=== PATIENT | male | born 1980 | race Hispanic/Latino ===

== ENCOUNTER 2018-05-14 06:48 | Emergency (ER) | payer SELFPAY ==
[2018-05-14] MEDS ORDERED: NA CHLORIDE 0.9% 1,000 ML ONE (07:24)
[2018-05-14 07:30] LABS: Protime INR 0.95
[2018-05-14 07:35] LABS: ALT/SGPT 63 U/L (12-78); AST/SGOT 22 U/L (15-37); Albumin 3.4 g/dL (3.4-5.0); Alkaline Phosphatase 77 U/L (45-117); BUN Blood Urea Nitrogen 13 mg/dL (7-18); Bicarbonate 35 mmol/L (21-32); Bilirubin Direct 0.1 mg/dL (0-0.2); Bilirubin Total 0.5 mg/dL (0.2-1.0); Glucose Level 72 mg/dL (74-106); Magnesium 2.3 mg/dL (1.8-2.4); NT PRO-BNP 7 pg/mL (<125); Potassium 3.4 mmol/L (3.5-5.1); Protein, Total 7.9 g/dL (6.4-8.2); Sodium Level 140 mmol/L (136-145); Troponin (Emerg Dept Use Only) < 0.02 ng/mL (0.0-0.045)
--- NOTE | 2018-05-14 08:07 | RAD REPORT ---
EXAM DESCRIPTION: CT - Head Brain Wo Cont - 05/14/2018 7:16 am CLINICAL HISTORY: MENTAL STATUS CHANGE Drowsiness, headache COMPARISON: No comparisons TECHNIQUE: All CT scans are performed using dose optimization technique as appropriate and may inclu de automated exposure control or mA/KV adjustment according to patient size. FINDINGS: No intracranial hemorrhage, hydrocephalus or extra-axial fluid collection.No areas of brai n edema or evidence of midline shift. The paranasal sinuses and mastoids are clear. The calvarium is intact. IMPRESSION: No acute intracranial abnormality.
--- NOTE | 2018-05-14 08:56 | RAD REPORT ---
EXAM DESCRIPTION: RAD - Chest Single View - 05/14/2018 7:16 am CLINICAL HISTORY: CHEST PAIN Chest pain. COMPARISON: No comparisons FINDINGS: Portable technique limits examination quality. The lungs are grossly clear. The heart is normal in size. No displaced fractures. IMPRESSION: No acute intrathoracic process suspected.
[2018-05-14 10:41] LABS: Barbiturates NEGATIVE (NEGATIVE); Benzodiazepines NEGATIVE (NEGATIVE); Cocaine NEGATIVE (NEGATIVE); METHAMPHETAM POSITIVE (NEGATIVE); Methadone NEGATIVE (NEGATIVE); Opiates POSITIVE (NEGATIVE); Phencyclidine NEGATIVE (NEGATIVE); THC Cannibis NEGATIVE (NEGATIVE)
[2018-05-14 11:20] LABS: Urine Blood TRACE (NEG); Urine Glucose NEGATIVE (NEG); Urine Protein NEGATIVE (NEG); Urine Specific Gravity 1.025 (1.005-1.030)
--- NOTE | 2018-05-14 11:44 | ER ---
Nurse's Notes [facility] Name: Sami Novak Age: 37 yrs Sex: Male : 1980 Arrival Date: 05/14/2018 Time: 06:50 Bed 6 Private MD: Diagnosis: Chest pain, unspecified;Altered mental status, unspecified;Drug use Presentation: 05/14 06:58 Presenting complaint: Patient states: PER SPOUSE: TEMPORARY MEMORY LOSS WHILE DRIVING, bp NOW ANXIOUS AND SHAKY. Transition of care: patient was not received from another setting of care. 06:58 Method Of Arrival: Wheelchair bp 07:00 Onset of symptoms is unknown. Risk Assessment: Do you want to hurt yourself or someone bp else? Patient reports no desire to harm self or others. Initial Sepsis Screen: Does the patient meet any 2 criteria? RR > 20 per min. No. Patient's initial sepsis screen is negative. Does the patient have a suspected source of infection? No. Patient's initial sepsis screen is negative. Care prior to arrival: None. 07:00 Acuity: DARIUS 2 bp Triage Assessment: 07:01 General: Appears distressed, uncomfortable, Behavior is cooperative, appropriate for bp age, agitated. Pain: Denies pain. Neuro: Level of Consciousness is awake, alert, obeys commands, Oriented to person, place, time, situation, Appropriate for age Speech is normal, STUTTERING. Historical: - Allergies: 07:01 No Known Allergies; bp - Home Meds: 07:01 None [Active]; bp - PMHx: 07:01 None; bp - Immunization history:: Adult Immunizations up to date. - Social history:: Smoking status: Patient uses tobacco products. - Ebola Screening: : Patient negative for fever greater than or equal to 101.5 degrees Fahrenheit, and additional compatible Ebola Virus Disease symptoms Patient denies exposure to infectious person Patient denies travel to an Ebola-affected area in the 21 days before illness onset No symptoms or risks identified at this time. Screenin:04 Abuse screen: Denies threats or abuse. Denies injuries from another. Nutritional bp screening: No deficits noted. Tuberculosis screening: No symptoms or risk factors identified. Fall Risk None identified. Assessment: 07:05 General: Appears distressed, comfortable, slender, unkempt, Behavior is cooperative, bp appropriate for age, agitated. Pain: Complains of pain in chest. Neuro: Level of Consciousness is awake, alert, obeys commands, Oriented to person, place, time, situation, Appropriate for age Speech is normal, Facial symmetry appears normal. Cardiovascular: Rhythm is sinus rhythm. Respiratory: Airway is patent Respiratory effort is even, unlabored, Respiratory pattern is regular, symmetrical. GI: No signs and/or symptoms were reported involving the gastrointestinal system. : No signs and/or symptoms were reported regarding the genitourinary system. EENT: No deficits noted. Derm: No deficits noted. Musculoskeletal: Circulation, motion, and sensation intact. Range of motion: intact in all extremities. 07:20 Reassessment: PT RETURNED FROM CT. bp 08:30 Reassessment: PT SLEEPING, VS STABLE ON MONITOR, UOP AND RESULTS PENDING. bp 10:26 Reassessment: ALL CURRENT ORDERS COMPLETED, FULL RESULTS PENDING. PT SLEEPING, VS bp STABLE. 11:46 Reassessment: Patient appears in no apparent distress at this time. Patient and/or sg family updated on plan of care and expected duration. Pain level reassessed. Patient is alert, oriented x 3, equal unlabored respirations, skin warm/dry/pink. awaiting Kaila CARLSON to update pt on results prior to DC to home Patient states feeling better. Vital Signs: 07:01 BP 115 / 82; Pulse 73; Resp 11; Temp 99; Pulse Ox 99% ; Weight 74.84 kg; Height 6 ft. 1 bp in. (185.42 cm); 07:50 BP 133 / 86; Pulse 79; Resp 12; Pulse Ox 97% ; sv 08:30 BP 126 / 82; Pulse 82; Resp 12; Pulse Ox 98% ; bp 10:30 BP 127 / 76; Pulse 67; Resp 13; Pulse Ox 98% ; bp 12:00 BP 121 / 84; Pulse 64; Resp 13; Pulse Ox 99% on R/A; sg 07:01 Body Mass Index 21.77 (74.84 kg, 185.42 cm) bp NIH Stroke Scale Scores: 08:24 NIHSS Score: 0 [facility] ED Course: 06:50 Patient arrived in ED. es 06:57 Camilla Dhaliwal FNP-C is [facility]. snw 06:57 Zack David MD is Attending Physician. snw 06:57 Lencho Lam, RN is Primary Nurse. bp 07:00 Triage completed. bp 07:01 Arm band placed on. bp 07:04 Patient has correct armband on for positive identification. Placed in gown. Bed in low bp position. Call light in reach. Side rails up X2. Adult w/ patient. 07:04 Inserted saline lock: 18 gauge in left antecubital area, using aseptic technique. bp 07:15 X-ray completed. Portable x-ray completed in exam room. Patient tolerated procedure jb2 well. 07:17 CT completed. Patient tolerated procedure well. Patient moved to CT via wheelchair. vr Patient moved back from CT. 07:17 XRAY Chest (1 view) In Process Unspecified. EDMS 07:17 CT Head Brain wo Cont In Process Unspecified. EDMS 07:24 CT completed. vm2 09:57 Urine collected: clean catch specimen, clear, maria a colored. jb1 10:25 EKG done, by emissions repair technician. reviewed by Camilla LUCAS. sm3 11:24 Primary Nurse role handed off by Lencho Lam, RN sg 11:24 Tomy Hinton, RN is Primary Nurse. sg Administered Medications: 07:15 Drug: NS 0.9% 1000 ml Route: IV; Rate: 125 ml/hr; Site: right antecubital; bp Point of Care Testing: Blood Glucose: 06:59 Blood Glucose: 75 mg/dL; bp Ranges: Outcome: 11:44 Discharge ordered by . snw 12:09 Patient left the ED. NIH Stroke Scale - NIH Stroke Score Date: 05/14/2018 Time: 08:24 Total Score = 0 1a. Level of Consciousness (LOC) - 0(Alert) 1b. Level of Consciousness (LOC) (Year \T\ Age) - 0(Both) 1c. LOC Commands (Open \T\ Closes Eyes/Radial Drill Operator For Plastic) - 0(Both) 2. Best Gaze (Lateral Gaze Paresis) - 0(Normal) 3. Visual Field Loss - 0(No visual loss) 4. Facial Palsy - 0(Normal) 5a. Left Arm: Motor (10-second hold) - 0(No drift) 5b. Right Arm: Motor (10-second hold) - 0(No drift) 6a. Left Leg: Motor (5-second hold - always test supine) - 0(No drift) 6b. Right Leg: Motor (5-second hold - always test supine) - 0(No drift) 7. Limb Ataxia (finger/nose \T\ heel/[place] - test with eyes open) - 0(Absent) 8. Sensory Loss (pinprick arms/legs/face) - 0(Normal) 9. Best Language: Aphasia (description/naming/reading) - 0(No aphasia) 10. Dysarthria (speech clarity - read or repeat words) - 0(Normal) 11. Extinction and Inattention (visual/tactile/auditory/spatial/personal) - 0(No abnormality) Initials: snw Signatures: Dispatcher [employer] Isaak Cantu1 Loren Mcgregor RN Tomy Griffin RN RN sg Camilla Dhaliwal, RECEIVING LEAD-C RECEIVING LEAD-Csnw Shira Perera Jesse jb2 Davis, Victoria vr McGuire, Victoria vm2 Lencho aLm, RN Ermelinda Young 3
--- NOTE | 2018-05-14 11:45 | EDPHYS ---
Physician Documentation [facility] Name: Sami Novak Age: 37 yrs Sex: Male : 1980 Arrival Date: 05/14/2018 Time: 06:50 Bed 6 Private MD: ED Physician Zack David HPI: 05/14 08:26 This 37 yrs old Male presents to ER via Wheelchair with complaints of Slurred snw Speech, Memory Loss, PROBLEM WALKING. 08:26 The patient presents to the emergency department with weakness of the a speech or snw higher order brain function problem, difficult walking, the patient is off balance. Onset: The symptoms/episode began/occurred last night. Context: occurred outdoors, occurred while the patient was driving. Associated signs and symptoms: Pertinent positives: altered mental status, chest pain. Severity of symptoms: At their worst the symptoms were moderate. Patient's baseline: Neuro: alert and fully oriented, Motor: no deficits, Ambulation: walks without assistance, Speech: slow, slurred. Current symptoms: anxiety. The patient has not experienced similar symptoms in the past. The patient has not recently seen a physician. Historical: - Allergies: 07:01 No Known Allergies; bp - Home Meds: 07:01 None [Active]; bp - PMHx: 07:01 None; bp - Immunization history:: Adult Immunizations up to date. - Social history:: Smoking status: Patient uses tobacco products. - Ebola Screening: : Patient negative for fever greater than or equal to 101.5 degrees Fahrenheit, and additional compatible Ebola Virus Disease symptoms Patient denies exposure to infectious person Patient denies travel to an Ebola-affected area in the 21 days before illness onset No symptoms or risks identified at this time. ROS: 08:26 Constitutional: Negative for fever, chills, and weight loss, Eyes: Negative for injury, snw pain, redness, and discharge, ENT: Negative for injury, pain, and discharge, Neck: Negative for injury, pain, and swelling, Respiratory: Negative for shortness of breath, cough, wheezing, and pleuritic chest pain, Abdomen/GI: Negative for abdominal pain, nausea, vomiting, diarrhea, and constipation, Back: Negative for injury and pain, : Negative for injury, bleeding, discharge, and swelling, MS/Extremity: Negative for injury and deformity, Skin: Negative for injury, rash, and discoloration. 08:26 Cardiovascular: Positive for chest pain. 08:26 Neuro: Positive for altered mental status, numbness, speech changes. Exam: 08:24 Head/Face: Normocephalic, atraumatic. snw 08:24 Neck: Trachea midline, no thyromegaly or masses palpated, and no cervical lymphadenopathy. Supple, full range of motion without nuchal rigidity, or vertebral point tenderness. No Meningismus. Chest/axilla: Normal chest wall appearance and motion. Nontender with no deformity. No lesions are appreciated. Cardiovascular: Regular rate and rhythm with a normal S1 and S2. No gallops, murmurs, or rubs. Normal PMI, no JVD. No pulse deficits. Respiratory: Lungs have equal breath sounds bilaterally, clear to auscultation and percussion. No rales, rhonchi or wheezes noted. No increased work of breathing, no retractions or nasal flaring. Abdomen/GI: Soft, non-tender, with normal bowel sounds. No distension or tympany. No guarding or rebound. No evidence of tenderness throughout. Back: No spinal tenderness. No costovertebral tenderness. Full range of motion. Skin: Warm, dry with normal turgor. Normal color with no rashes, no lesions, and no evidence of cellulitis. MS/ Extremity: Pulses equal, no cyanosis. Neurovascular intact. Full, normal range of motion. Neuro: Awake and alert, GCS 15, oriented to person, place, time, and situation. Cranial nerves II-XII grossly intact. Motor strength 5/5 in all extremities. Sensory grossly intact. Cerebellar exam normal. Normal gait. 08:24 Constitutional: The patient appears alert, awake, agitated, anxious, restless, unkempt. 08:24 Eyes: Pupils: no acute changes, Extraocular movements: no acute changes, Conjunctiva: injected, Corneas: are normal. 08:24 Psych: Behavior/mood is anxious, Affect is animated, Oriented to person, place, time. 08:28 ENT: TM's: are normal, Nose: is normal, Mouth: is normal, Dental exam: dental caries, snw that is moderate, that is severe, diffusely. Vital Signs: 07:01 BP 115 / 82; Pulse 73; Resp 11; Temp 99; Pulse Ox 99% ; Weight 74.84 kg; Height 6 ft. 1 bp in. (185.42 cm); 07:50 BP 133 / 86; Pulse 79; Resp 12; Pulse Ox 97% ; sv 08:30 BP 126 / 82; Pulse 82; Resp 12; Pulse Ox 98% ; bp 10:30 BP 127 / 76; Pulse 67; Resp 13; Pulse Ox 98% ; bp 12:00 BP 121 / 84; Pulse 64; Resp 13; Pulse Ox 99% on R/A; sg 07:01 Body Mass Index 21.77 (74.84 kg, 185.42 cm) bp NIH Stroke Scale Scores: 08:24 NIHSS Score: 0 snw MDM: 07:28 Patient medically screened. snw 11:45 Data reviewed: vital signs, nurses notes. Counseling: I had a detailed discussion with snw the patient and/or guardian regarding: the historical points, exam findings, and any diagnostic results supporting the discharge/admit diagnosis, lab results, radiology results, the need for outpatient follow up, to return to the emergency department if symptoms worsen or persist or if there are any questions or concerns that arise at home. Special discussion: Based on the patient's history, exam, and Dx evaluation, there is no indication for emergent intervention or inpatient Tx. It is understood by the patient/guardian that if the Sx's persist or worsen they need to return immediately for re-evaluation. Based on the history and exam findings, there is no indication for further emergent testing or inpatient evaluation. I discussed with the patient/guardian the need to see the primary care provider for further evaluation of the symptoms. 05/14 06:58 Order name: Basic Metabolic Panel; Complete Time: 07:47 snw 05/14 06:58 Order name: CBC with Diff; Complete Time: 11:00 snw 05/14 06:58 Order name: LFT's; Complete Time: 07:47 snw 05/14 06:58 Order name: Magnesium; Complete Time: 07:47 snw 05/14 06:58 Order name: NT PRO-BNP; Complete Time: 07:47 snw 05/14 06:58 Order name: PT-INR; Complete Time: 07:47 snw 05/14 06:58 Order name: Troponin (emerg Dept Use Only); Complete Time: 07:47 snw 05/14 06:58 Order name: XRAY Chest (1 view); Complete Time: 08:59 snw 05/14 06:58 Order name: EKG; Complete Time: 06:59 snw 05/14 06:58 Order name: UDS; Complete Time: 11:00 snw 05/14 06:58 Order name: CT Head Brain wo Cont; Complete Time: 08:12 snw 05/14 06:58 Order name: Blood Culture Adult (2) snw 05/14 10:00 Order name: Urine Dipstick--Ancillary (enter results); Complete Time: 11:42 eb 05/14 06:58 Order name: Cardiac monitoring; Complete Time: 07:08 snw 05/14 06:58 Order name: IV Saline Lock; Complete Time: 07:08 snw 05/14 06:58 Order name: Labs collected and sent; Complete Time: 07:09 snw 05/14 06:58 Order name: O2 Per Protocol; Complete Time: 07:09 snw 05/14 06:58 Order name: O2 Sat Monitoring; Complete Time: 07:09 snw Administered Medications: 07:15 Drug: NS 0.9% 1000 ml Route: IV; Rate: 125 ml/hr; Site: right antecubital; bp Point of Care Testing: Blood Glucose: 06:59 Blood Glucose: 75 mg/dL; bp Ranges: Critical Glucose Levels:Adult <50 mg/dl or >400 mg/dl <40 mg/dl or >180 mg/dl Disposition: 19:30 Co-signature as Attending Physician, Zack David MD. Disposition: 05/14/18 11:44 Discharged to Home. Impression: Chest pain, unspecified, Altered mental status, unspecified, Drug use. - Condition is Stable. - Discharge Instructions: Nonspecific Chest Pain, Stimulant Use Disorder-Methamphetamines, Rehydration, Adult, What You Need To Know About Illegal Drug Use and Dependence, Youth. - Work release form, Family Work Release, Medication Reconciliation Form, Thank You Letter, Antibiotic Education, Prescription Opioid Use form. - Follow up: Emergency Department; When: As needed; Reason: Worsening of condition. Follow up: Private Physician; When: 10 - 14 days; Reason: Continuance of care, Staple/Suture removal. NIH Stroke Scale - NIH Stroke Score Date: 05/14/2018 Time: 08:24 Total Score = 0 1a. Level of Consciousness (LOC) - 0(Alert) 1b. Level of Consciousness (LOC) (Year \T\ Age) - 0(Both) 1c. LOC Commands (Open \T\ Closes Eyes/Chlorine Cell Tender) - 0(Both) 2. Best Gaze (Lateral Gaze Paresis) - 0(Normal) 3. Visual Field Loss - 0(No visual loss) 4. Facial Palsy - 0(Normal) 5a. Left Arm: Motor (10-second hold) - 0(No drift) 5b. Right Arm: Motor (10-second hold) - 0(No drift) 6a. Left Leg: Motor (5-second hold - always test supine) - 0(No drift) 6b. Right Leg: Motor (5-second hold - always test supine) - 0(No drift) 7. Limb Ataxia (finger/nose \T\ heel/[place] - test with eyes open) - 0(Absent) 8. Sensory Loss (pinprick arms/legs/face) - 0(Normal) 9. Best Language: Aphasia (description/naming/reading) - 0(No aphasia) 10. Dysarthria (speech clarity - read or repeat words) - 0(Normal) 11. Extinction and Inattention (visual/tactile/auditory/spatial/personal) - 0(No abnormality) Initials: snw Signatures: Dispatcher [employer] EDMS Tomy Hinton, SVETLANA RN sg Camilla Dhaliwal, CASE COORDINATOR-C CASE COORDINATOR-Csnw Zack David MD MD gs Peltier, Brian, RN RN bp Corrections: (The following items were deleted from the chart) 08:28 08:24 Neck: Trachea midline, no thyromegaly or masses palpated, and no cervical snw lymphadenopathy. Supple, full range of motion without nuchal rigidity, or vertebral point tenderness. No Meningismus. Chest/axilla: Normal chest wall appearance and motion. Nontender with no deformity. No lesions are appreciated. Cardiovascular: Regular rate and rhythm with a normal S1 and S2. No gallops, murmurs, or rubs. Normal PMI, no JVD. No pulse deficits. Respiratory: Lungs have equal breath sounds bilaterally, clear to auscultation and percussion. No rales, rhonchi or wheezes noted. No increased work of breathing, no retractions or nasal flaring. Abdomen/GI: Soft, non-tender, with normal bowel sounds. No distension or tympany. No guarding or rebound. No evidence of tenderness throughout. Back: No spinal tenderness. No costovertebral tenderness. Full range of motion. Skin: Warm, dry with normal turgor. Normal color with no rashes, no lesions, and no evidence of cellulitis. MS/ Extremity: Pulses equal, no cyanosis. Neurovascular intact. Full, normal range of motion. Neuro: Awake and alert, GCS 15, oriented to person, place, time, and situation. Cranial nerves II-XII grossly intact. Motor strength 5/5 in all extremities. Sensory grossly intact. Cerebellar exam normal. Normal gait. snw 11:49 11:44 05/14/2018 11:44 Discharged to Home. Impression: Bilateral earlobe snw foreign body. Condition is Stable. Forms are Medication Reconciliation Form, Thank You Letter, Antibiotic Education, Prescription Opioid Use. Follow up: Emergency Department; When: As needed; Reason: Worsening of condition. Follow up: Private Physician; When: 10 - 14 days; Reason: Continuance of care, Staple/Suture removal. snw 12:09 11:49 05/14/2018 11:44 Discharged to Home. Impression: Chest pain, unspecified; sg Altered mental status, unspecified; Drug use. Condition is Stable. Forms are Medication Reconciliation Form, Thank You Letter, Antibiotic Education, Prescription Opioid Use, Family Work Release, Work release form. Follow up: Emergency Department; When: As needed; Reason: Worsening of condition. Follow up: Private Physician; When: 10 - 14 days; Reason: Continuance of care, Staple/Suture removal. snw
--- NOTE | 2018-05-14 18:54 | EKG ---
Test Date: 2018-05-14 Test Time: 10:12:25 [employer] Land Supervisor: CAITLIN MEASUREMENT RESULTS: Intervals: Rate: 68 OH: 140 QRSD: 94 QT: 400 QTc: 425 [place]: P: 79 OH: 140 QRS: 88 T: 66 INTERPRETIVE STATEMENTS: Normal sinus rhythm ST elevation, consider early repolarization, pericarditis, or injury Abnormal ECG No previous ECG available for comparison Electronically Signed On 05-14-18 18:53:29 MARKETING COMMUNICATION MANAGER by João Paredes
== END 2018-05-14 12:09 | disposition home or self-care (01) ==
LOC: ER 06:48
DX: R07.9 Chest pain, unspecified (principal); F19.10 Other psychoactive substance abuse, uncomplicated; Z72.0 Tobacco use
CPT/HCPCS: 36415; 70450; 71045; 80048; 80076; 80307; 81003; 82962; 83735; 83880; 84484; 85025; 85610; 87040; 93005; J7030

== ENCOUNTER 2018-07-25 19:12 | Emergency (ER) | payer SELFPAY ==
[2018-07-25] MEDS ORDERED: NA CHLORIDE 0.9% 1,000 ML ONE (19:35)
[2018-07-25] MEDS ORDERED: NALOXONE HCL 2 MG/2 ML VIAL ONE (19:36)
[2018-07-25] MEDS ORDERED: ONDANSETRON 4 MG/2 ML VIAL ONE (19:40)
[2018-07-25 19:50] LABS: Protime INR 1.05
[2018-07-25 19:52] LABS: Absolute Lymphocytes (CBC) 2.3 K/uL (0.7-4.9); Absolute Monocytes 0.6 K/uL (0.1-1.3); Absolute Neutrophil 4.2 K/uL (1.8-8.0); Basophils % 0.4 % (0-1.3); Eosinophils % 1.8 % (0-4.4); Hematocrit 48.6 % (39.6-49.0); MPV 10.1 fL (7.6-11.3); Monocytes % 8.7 % (3.3-12.3); RBC Red Blood Cell Count 5.11 M/uL (4.33-5.43)
[2018-07-25 20:14] LABS: ALT/SGPT 126 U/L (12-78); AST/SGOT 54 U/L (15-37); Albumin 3.9 g/dL (3.4-5.0); Alkaline Phosphatase 84 U/L (45-117); BUN Blood Urea Nitrogen 14 mg/dL (7-18); Bicarbonate 26 mmol/L (21-32); Bilirubin Direct 0.2 mg/dL (0-0.2); Bilirubin Total 0.8 mg/dL (0.2-1.0); Glucose Level 200 mg/dL (74-106); Potassium 3.8 mmol/L (3.5-5.1); Protein, Total 7.9 g/dL (6.4-8.2); Sodium Level 139 mmol/L (136-145)
[2018-07-25 21:39] LABS: Urine Blood 2+ (NEG); Urine Glucose NEGATIVE (NEG); Urine Protein 2+ (NEG); Urine Specific Gravity >1.030 (1.005-1.030)
[2018-07-25 21:43] LABS: Barbiturates NEGATIVE (NEGATIVE); Benzodiazepines NEGATIVE (NEGATIVE); Cocaine POSITIVE (NEGATIVE); METHAMPHETAM POSITIVE (NEGATIVE); Methadone NEGATIVE (NEGATIVE); Opiates POSITIVE (NEGATIVE); Phencyclidine NEGATIVE (NEGATIVE); THC Cannibis NEGATIVE (NEGATIVE)
[2018-07-26] MEDS ORDERED: IPRATROPIUM BROM 0.5MG/2.5ML ONE (06:30)
[2018-07-26] MEDS ORDERED: ALBUTEROL 2.5 MG/3 ML NEB SOL ONE (06:30)
--- NOTE | 2018-07-26 06:30 | ER ---
Nurse's Notes [facility] Name: Sami Novak Age: 38 yrs Sex: Male : 1980 Arrival Date: 07/25/2018 Time: 19:17 Bed 3 Private MD: Diagnosis: Altered mental status. Substances abuse Presentation: 07/25 19:17 Presenting complaint: EMS states: "a bystander reported pt was found without a pulse so jd3 they started CPR. upon our arrival we found the pt laying next to syringes and unresponsive. we started bagging and continued compressions. we administered Narcan and the pt woke up. pt denied doing any drugs.". Transition of care: patient was not received from another setting of care. Onset of symptoms was July 25, 2018. Risk Assessment: Do you want to hurt yourself or someone else? Patient reports no desire to harm self or others. Initial Sepsis Screen: Does the patient meet any 2 criteria? No. Patient's initial sepsis screen is negative. Does the patient have a suspected source of infection? No. Patient's initial sepsis screen is negative. Care prior to arrival: Placed on backboard. Medication(s) given: Narcan Oxygen administered. via AMBU bag. 19:17 Method Of Arrival: EMS: [facility] jd3 19:17 Acuity: DARIUS 1 jd3 Historical: - Allergies: 19:29 No Known Allergies; jd3 - Home Meds: 19:29 None [Active]; jd3 - PMHx: 19:29 None; jd3 - PSHx: 19:29 right knee; jd3 - Immunization history:: Adult Immunizations unknown. - Social history:: Smoking status: unknown. - Ebola Screening: : Patient negative for fever greater than or equal to 101.5 degrees Fahrenheit, and additional compatible Ebola Virus Disease symptoms. Screenin:31 Abuse screen: Denies threats or abuse. Nutritional screening: No deficits noted. jd3 Tuberculosis screening: No symptoms or risk factors identified. Fall Risk IV access (20 points). Ambulatory Aid- None/Bed Rest/Nurse Assist (0 pts). Gait- Normal/Bed Rest/Wheelchair (0 pts) Mental Status- Overestimates/Forgets Limitations (15 pts.). Total Lee Fall Scale indicates Low Risk Score (25-44 pts). Fall prevention measures have been instituted. Side Rails Up X 2 Placed close to Nursing Station Frequent Obs/Assesments occuring. Assessment: 19:15 General: Appears uncomfortable, Behavior is anxious, restless. Pain: Denies pain. jd3 Neuro: Level of Consciousness is awake, alert, confused, Oriented to person. Cardiovascular: Denies chest pain, Capillary refill < 3 seconds Patient's skin is warm and dry. Respiratory: Airway is patent Respiratory effort is even, unlabored, Respiratory pattern is regular, symmetrical, Denies shortness of breath. GI: Abdomen is round non-distended, Reports nausea, Patient currently denies abdominal pain, constipation, diarrhea. : No signs and/or symptoms were reported regarding the genitourinary system. EENT: No signs and/or symptoms were reported regarding the EENT system. Derm: Skin is intact, Skin is dry, Skin is normal, Skin temperature is warm. Musculoskeletal: Circulation, motion, and sensation intact. Range of motion: intact in all extremities. 19:20 Reassessment: pt becoming anxious, verbal reassurance given. jd3 19:25 Reassessment: pt becoming increasingly combative and anxious after verbal reassurance. jd3 charge nurse, security, and police notified. 19:30 Reassessment: pt pulled out own IV and pulled off monitoring equipment, refusing to j cooperate with medical staff. police and security arrive at bedside. 20:00 Reassessment: police leaving room after talking with pt. pt reports he will cooperate j with medical staff. 20:08 Reassessment: pt appears to be sleeping, eyes closed, resp unlabored, sats are 88% on bb room air pt placed on O2 via NC at 2 Lpm sats now 93%. 20:35 Reassessment: pt given urinal and asked to urinate for a sample. jd3 21:49 Reassessment: Patient appears in no apparent distress at this time. Patient and/or [facility] family updated on plan of care and expected duration. Pain level reassessed. pt resting in bed with eyes closed, even and unlabored respirations, visiter at bedside. Patient denies pain at this time. General: Behavior is drowsy. 22:46 Reassessment: Patient appears in no apparent distress at this time. No changes from jd3 previously documented assessment. Patient and/or family updated on plan of care and expected duration. Pain level reassessed. 23:46 Reassessment: Patient appears in no apparent distress at this time. No changes from jd3 previously documented assessment. Patient and/or family updated on plan of care and expected duration. Pain level reassessed. 07/26 00:29 Reassessment: Patient appears in no apparent distress at this time. Patient and/or jd3 family updated on plan of care and expected duration. Pain level reassessed. even and unlabored respirations. Patient denies pain at this time. General: Behavior is drowsy. 01:42 Reassessment: Patient appears in no apparent distress at this time. No changes from jd3 previously documented assessment. Patient and/or family updated on plan of care and expected duration. Pain level reassessed. 02:35 Reassessment: Patient appears in no apparent distress at this time. No changes from jd3 previously documented assessment. Patient and/or family updated on plan of care and expected duration. Pain level reassessed. 03:03 Reassessment: Patient appears in no apparent distress at this time. No changes from jd3 previously documented assessment. Patient and/or family updated on plan of care and expected duration. Pain level reassessed. 04:04 Reassessment: Patient appears in no apparent distress at this time. Patient and/or jd3 family updated on plan of care and expected duration. Pain level reassessed. pt resting in bed with eyes closed, even and unlabored respirations. friend/family at bedside. 05:03 Reassessment: Patient appears in no apparent distress at this time. No changes from jd3 previously documented assessment. Patient and/or family updated on plan of care and expected duration. Pain level reassessed. 06:15 Neuro: Level of Consciousness is awake, alert, obeys commands, Oriented to person, jd3 place, time, situation, Appropriate for age. 06:16 Reassessment: Patient appears in no apparent distress at this time. Patient and/or jd3 family updated on plan of care and expected duration. Pain level reassessed. Patient is alert, oriented x 3, equal unlabored respirations, skin warm/dry/pink. Patient denies pain at this time. Patient states feeling better. 06:30 Reassessment: Patient appears in no apparent distress at this time. Patient and/or jd3 family updated on plan of care and expected duration. Pain level reassessed. Patient is alert, oriented x 3, equal unlabored respirations, skin warm/dry/pink. Patient denies pain at this time. Patient states feeling better. 07:08 Reassessment: Patient appears in no apparent distress at this time. No changes from [facility] previously documented assessment. Patient and/or family updated on plan of care and expected duration. Pain level reassessed. Patient is alert, oriented x 3, equal unlabored respirations, skin warm/dry/pink. Vital Signs: 07/25 19:29 BP 115 / 87; Pulse 84; Resp 16 S; Temp 96.4(TE); Pulse Ox 98% on R/A; Weight 77.11 kg jd3 (R); Height 6 ft. 1 in. (185.42 cm) (R); Pain 0/10; 21:50 BP 112 / 87; Pulse 58; Resp 12 S; Pulse Ox 97% on 2 lpm NC; jd3 22:46 BP 119 / 80; Pulse 59; Resp 13 S; Pulse Ox 97% on 2 lpm NC; Pain 0/10; jd3 23:43 BP 119 / 86; Pulse 61; Resp 12 S; Pulse Ox 96% on 2 lpm NC; jd3 04/ 00:34 BP 123 / 86; Pulse 53; Resp 14 S; Pulse Ox 95% on 2 lpm NC; jd3 01:42 BP 124 / 85; Pulse 57; Resp 13 S; Pulse Ox 96% on 2 lpm NC; jd3 02:30 BP 118 / 89; Pulse 57; Resp 13 S; Pulse Ox 96% on 2 lpm NC; jd3 03:07 BP 117 / 83; Pulse 65; Resp 16 S; Pulse Ox 95% on 2 lpm NC; jd3 04:07 BP 108 / 72; Pulse 60; Resp 16 S; Pulse Ox 96% on 2 lpm NC; jd3 05:04 BP 112 / 70; Pulse 75; Resp 12 S; Pulse Ox 96% on 2 lpm NC; jd3 06:16 BP 107 / 72; Pulse 65; Resp 12 S; Pulse Ox 93% on 2 lpm NC; jd3 07:08 BP 110 / 80; Pulse 66; Resp 15 S; Pulse Ox 97% on R/A; Pain 0/10; jd3 07/25 19:29 Body Mass Index 22.43 (77.11 kg, 185.42 cm) jd3 ED Course: 07/25 19:15 Inserted saline lock: 20 gauge in right antecubital area, using aseptic technique. jd3 Blood collected. 19:17 Patient arrived in ED. jd3 19:23 Triage completed. jd3 19:30 Tesfaye Mendoza MD is Attending Physician. la1 19:30 Arm band placed on. EKG completed in triage. Results shown to MD. jd3 19:32 Patient has correct armband on for positive identification. Placed in gown. Bed in low jd3 position. Call light in reach. Side rails up X2. 19:32 radiation monitor on. Pulse ox on. NIBP on. jd3 19:33 Paco Gerardo, SVETLANA is Primary Nurse. jd3 19:54 Radiology exam delayed due to PT TOO COMBATIVE \\T\\ THIS TIME. mw3 21:15 Urine collected: straight cath specimen, clear. Straight cath inserted, using sterile bb technique, 16 Fr. Specimen obtained. Patient tolerated well. 21:28 Inserted saline lock: 22 gauge in right hand, using aseptic technique. ak1 21:55 Chest Single View XRAY In Process Unspecified. EDMS 07/26 07:04 No provider procedures requiring assistance completed. IV discontinued, intact, ak1 bleeding controlled, No redness/swelling at site. Pressure dressing applied. Administered Medications: 07/25 19:18 Drug: NS 0.9% 500 ml Route: IV; Rate: bolus; Site: right antecubital; jd3 22:01 Follow up: Response: No adverse reaction; IV Status: Completed infusion; IV Intake: jd3 500ml 19:18 Drug: NS 0.9% 1000 ml Route: IV; Rate: 125 ml/hr; Site: right antecubital; jd3 07/26 07:04 Follow up: IV Status: Completed infusion; IV Intake: 1000ml [facility] 07/25 19:18 Drug: NARcan 2 mg Route: IVP; Site: right antecubital; jd3 07/26 07:03 Follow up: Response: No adverse reaction [facility] 07/25 19:18 Drug: Zofran 4 mg Route: IVP; Site: right antecubital; jd3 07/26 07:03 Follow up: Response: No adverse reaction [facility] 07/25 19:37 CANCELLED (Physician Discretion): NS 0.9% 500 ml IV at bolus once jd3 19:37 CANCELLED (Physician Discretion): NS 0.9% 1000 ml IV at 125 ml/hr continuous jd3 19:38 CANCELLED (Physician Discretion): Zofran 4 mg IVP once; over 2 minutes jd3 19:38 CANCELLED (Physician Discretion): NARcan 2 mg IVP once jd3 07/26 06:22 Drug: Albuterol - atroVENT (3:1) (2.5 mg - 0.5 mg) 3 ml Route: Nebulizer; jd3 07:03 Follow up: Response: No adverse reaction ak1 Intake: 07/25 22:01 IV: 500ml; Total: 500ml. jd3 07/26 07:04 IV: 1000ml; Total: 1500ml. ak1 Outcome: 06:29 Discharge ordered by . pkanival 07:04 Discharged to home ambulatory, with friend. ak1 07:04 Condition: good 07:04 Discharge instructions given to patient, Instructed on discharge instructions, follow up and referral plans. Demonstrated understanding of instructions, follow-up care. 07:11 Patient left the ED. jd3 Signatures: Dispatcher [employer] EDMS Tesfaye Mendoza MD MD pkl Ballard, Brenda, RN RN bb Attema, Lee, RN RN Licha Kumar RN RN Paco Neville RN RN jd3 Willis, Michelle mw3 Corrections: (The following items were deleted from the chart) 07/25 19:33 19:32 Patient has correct armband on for positive identification. Placed in gown. Bed jd3 in low position. Call light in reach. Side rails up X2. jd3 20:09 19:25 Reassessment: pt becoming increasingly combative and anxious after verbal jd3 reassurance. charge nurse, security notified. jd3 20: 19:30 Reassessment: pt pulled out own IV and pulled off monitoring equipment, refusing jd3 to cooperate with medical staff. police notified jd3 20:38 19:30 Reassessment: pt pulled out own IV and pulled off monitoring equipment, refusing jd3 to cooperate with medical staff. police and security at bedside jd3 21:52 21:49 Reassessment: Patient appears in no apparent distress at this time. Patient jd3 and/or family updated on plan of care and expected duration. Pain level reassessed. Patient denies pain at this time. jd3 22:48 20:33 Reassessment: police leaving room after talking with pt. pt reports he will jd3 cooperate with medical staff. jd3 23:45 22:46 BP 119 / 80; Pulse 59bpm; Resp 12bpm; Spontaneous; Pulse Ox 97% 2 lpm Nasal jd3 Cannula; Pain 0/10; jd3 23:45 23:43 BP 119 / 86; Pulse 61bpm; Resp 10bpm; Spontaneous; Pulse Ox 96% 2 lpm Nasal jd3 Cannula; jd3 04 00:34 00:29 Reassessment: Patient appears in no apparent distress at this time. Patient jd3 and/or family updated on plan of care and expected duration. Pain level reassessed. Patient is alert, oriented x 3, equal unlabored respirations, skin warm/dry/pink. jd3 01:42 00:29 Reassessment: Patient appears in no apparent distress at this time. Patient jd3 and/or family updated on plan of care and expected duration. Pain level reassessed. Patient denies pain at this time. jd3 07:10 06:16 Reassessment: Patient appears in no apparent distress at this time. No changes jd3 from previously documented assessment. Patient and/or family updated on plan of care and expected duration. Pain level reassessed. jd3 07:10 06:30 Reassessment: Patient appears in no apparent distress at this time. Patient jd3 and/or family updated on plan of care and expected duration. Pain level reassessed. Patient is alert, oriented x 3, equal unlabored respirations, skin warm/dry/pink. Patient denies pain at this time. Patient states feeling better. jd3 07:10 07:08 Reassessment: Patient appears in no apparent distress at this time. No changes jd3 from previously documented assessment. Patient and/or family updated on plan of care and expected duration. Pain level reassessed. Patient is alert, oriented x 3, equal unlabored respirations, skin warm/dry/pink. jd3
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
--- NOTE | 2018-07-26 08:04 | RAD REPORT ---
EXAM DESCRIPTION: Randy Single View07/25/2018 9:55 pm CLINICAL HISTORY: Chest pain COMPARISON: n shortness of breath April 2018 FINDINGS: [id number] bilateral pulmonary opacities. The heart is normal size IMPRESSION: Mild to moderate bilateral pulmonary opacities may represent pulmonary edema or pneumoni a
== END 2018-07-26 07:11 | disposition home or self-care (01) ==
LOC: ER 19:12
DX: F19.10 Other psychoactive substance abuse, uncomplicated (principal)
CPT/HCPCS: 36415; 51702; 71045; 80048; 80076; 80307; 80320; 80329; 81003; 85025; 85610; 85730; 94640; 96361; 96374; 96375; 99291; 99292; J2310; J2405; J7030

== ENCOUNTER 2020-10-24 03:44 | Emergency (ER) | payer SELFPAY ==
--- OUTSIDE RECORDS SUMMARY | 2020-10-24 03:46 | XMS REPORT | Continuity of Care Document ---
:1980 Author Organization [facility] t Address [address] [place] [address] Care Team Providers Name Role Phone Kendall NEW Attending Clinician Moe ALVARADO Attending Clinician Luis ALVARADO, Bobby Serna Attending Clinician Jose Francisco Miner MD S Attending Clinician Alonso ALVARADO Attending Clinician Problems This patient has no known problems. Allergies, Adverse Reactions, Alerts This patient has no known allergies or adverse reactions. Medications This patient has no known medications. Procedures This patient has no known procedures. Encounters Start End Encounter Admission Attending Care Care Encounter Source Date/Time Date/Time Type Type Clinicians Facility Department ID 2020-09-13 2020-09-13 Emergency Kendall [facility] [id number] 04:13:00 06:54:00 [facility] [id number] Kiki [id number] [place] [id number] [facility] 014 ([facility]) 2020-09-08 2020-09-08 Emergency Moe [facility] [id number] 00:31:00 02:34:00 [facility] [id number] [place] [id number] [place] [phone] [facility] 014 ([facility]) 2020-08-27 2020-08-27 Office Jn Smith [facility] [id number] 09:16:08 09:46:08 [facility] [id number] Kareem Swanson [id number] [place] [phone] Medical [address] 2020-08-18 2020-08-18 Anesthesia Regulo Miner [facility] [id number] 09:14:00 11:01:00 Event [facility] [id number] Clear [id number] [place] [phone] [place] [address] (CLC) Results This patient has no known results.
--- NOTE | 2020-10-24 03:58 | ER ---
Nurse's Notes [facility] Name: Sami Novak Age: 40 yrs Sex: Male : 1980 Arrival Date: 10/24/2020 Time: 03:48 Bed 16 Private MD: Diagnosis: Presentation: 10/24 03:53 Chief complaint: EMS states: was at a hotel and friends noticed his was in the bathroom em for too long, unknown if he had a seizure, pt drowsy, denies taking any substances. Coronavirus screen: Client denies travel out of the [place] in the last 14 days. Ebola Screen: Patient negative for fever greater than or equal to 101.5 degrees Fahrenheit, and additional compatible Ebola Virus Disease symptoms Patient denies exposure to infectious person. Patient denies travel to an Ebola-affected area in the 21 days before illness onset. No symptoms or risks identified at this time. Initial Sepsis Screen: Does the patient meet any 2 criteria? No. Patient's initial sepsis screen is negative. Does the patient have a suspected source of infection? No. Patient's initial sepsis screen is negative. Risk Assessment: Do you want to hurt yourself or someone else? Patient reports no desire to harm self or others. Onset of symptoms was October 24, 2020. 03:53 Method Of Arrival: EMS: [facility] em 03:53 Acuity: DARIUS 3 em Historical: - Allergies: 03:55 No Known Allergies; em - PMHx: 03:55 Seizure; em - PSHx: 03:55 None; em - Immunization history:: Adult Immunizations up to date. - Social history:: Smoking status: Patient denies any tobacco usage or history of. Assessment: 03:57 Reassessment: pt states he did not want to be here and his friends made him come, pt IV em D/C'd, applied coban, pt ambulated out of ED. Vital Signs: 03:53 BP 128 / 88; Pulse 81; Resp 16; Temp 97.1; Pulse Ox 97% on R/A; Weight 74.84 kg; Height em 6 ft. 2 in. (187.96 cm); Pain 0/10; 03:53 Body Mass Index 21.18 (74.84 kg, 187.96 cm) em ED Course: 03:48 Patient arrived in ED. em 03:48 Abhinav Vuong MD is Attending Physician. ma2 03:55 Triage completed. em 03:55 Arm band placed on. em Administered Medications: 03:56 Not Given (Patient Eloped): NS 0.9% 2000 ml IV at 1 bolus Per protocol; 2000 mL bolus em 03:56 Not Given (Patient Eloped): Keppra (levETIRAcetam) 1000 mg IV at calculated rate once em Outcome: 03:58 Patient left the ED. em Signatures: William Vinson RN RN em Abhinav Vuong MD MD ma2 Corrections: (The following items were deleted from the chart) 03:55 03:55 Allergies: No Known Allergies; em em 03:55 03:55 PMHx: None; em em
--- NOTE | 2020-10-24 03:59 | EDPHYS ---
Physician Documentation [facility] Name: Sami Novak Age: 40 yrs Sex: Male : 1980 Arrival Date: 10/24/2020 Time: 03:48 Bed 16 Private MD: ED Physician Abhinav Vuong HPI: 10/24 03:49 This 40 yrs old Male presents to ER via Unassigned with complaints of Probable ma2 Seizure. Historical: - Allergies: 03:55 No Known Allergies; em - PMHx: 03:55 Seizure; em - PSHx: 03:55 None; em - Immunization history:: Adult Immunizations up to date. - Social history:: Smoking status: Patient denies any tobacco usage or history of. Vital Signs: 03:53 BP 128 / 88; Pulse 81; Resp 16; Temp 97.1; Pulse Ox 97% on R/A; Weight 74.84 kg; Height em 6 ft. 2 in. (187.96 cm); Pain 0/10; 03:53 Body Mass Index 21.18 (74.84 kg, 187.96 cm) em MDM: 03:48 Patient medically screened. ma2 10/24 03:49 Order name: Acetaminophen ma2 10/24 03:49 Order name: Basic Metabolic Panel ma2 10/24 03:49 Order name: CBC with Diff ma2 10/24 03:49 Order name: EKG; Complete Time: 03:50 ma2 Administered Medications: 03:56 Not Given (Patient Eloped): NS 0.9% 2000 ml IV at 1 bolus Per protocol; 2000 mL bolus em 03:56 Not Given (Patient Eloped): Keppra (levETIRAcetam) 1000 mg IV at calculated rate once em Disposition Summary: 10/24/20 03:58 Eloped Disposition: before being seen by provider em Reason: unknown em Condition: Stable em Signatures: Dispatcher [employer] William Wong RN RN em Abhinav Vuong MD MD ma2 Corrections: (The following items were deleted from the chart) 03:55 03:55 Allergies: No Known Allergies; em em 03:55 03:55 PMHx: None; em em 03:56 03:49 EKG - Nurse/Tech ordered. ma2 em 03:56 03:49 IV Saline Lock ordered. nm2 em 03:56 03:49 Labs collected and sent ordered. [facility] em 03:56 03:49 Suicide Screening ([place]) ordered. [facility] em 03:57 03:49 Urine Dipstick-Ancillary ordered. [facility] em
[2020-10-24 04:31] VITALS: BP 128/88; TEMP 97.1; O2SAT 97
== END 2020-10-24 03:58 | disposition left against medical advice (07) ==
LOC: ER 03:44
DX: Z53.21 Procedure and treatment not carried out due to patient leaving prior to being seen by health care provider (principal)
CPT/HCPCS: 93005